=== PATIENT | female | born 1995 | race Caucasian/White ===

== ENCOUNTER 2021-12-07 21:39 | Inpatient (IN) ==
[2021-12-07 22:07] LABS: Basophils # 0.1 K/mcL (0.0-0.2); Basophils % 0.6 %; Eosinophils # 0.1 K/mcL (0.0-0.6); Hematocrit 42.3 % (35.3-44.9); Hemoglobin 14.1 g/dL (11.5-15.4); Immature Granulocytes % 0.4 % (0-4); Lymphocytes # 2.2 K/mcL (0.6-4.6); Lymphocytes % 26.7 %; Mean Corpuscular HGB Conc 33.3 g/dL (31.6-35.5); Mean Corpuscular Hemoglobin 30.4 pg (28.0-33.3); Mean Corpuscular Volume 91.2 fL (83.0-100.0); Mean Platelet Volume 11.1 fL (9.4-12.4); Monocytes # 0.6 K/mcL (0.0-1.3); Monocytes % 7.7 %; Neutrophils # 5.3 K/mcL (1.6-8.9); Platelet Count 259 K/mcL (140-400); Red Blood Count 4.64 M/mcL (3.82-4.97); Red Cell Distribution Width 12.8 % (11.5-14.5); Segmented Neutrophils % 63.6 %; White Blood Count 8.3 K/mcL (4.3-11.1)
[2021-12-07 22:27] LABS: Acetaminophen < 10 mcg/mL (10-20); Alanine Aminotransferase 10 Units/L (7-52); Albumin 4.8 g/dL (3.5-5.7); Albumin/Globulin Ratio 1.8 (1.1-2.2); Alkaline Phosphatase 81 Units/L (34-104); Aspartate Amino Transferase 15 Units/L (13-39); BUN/Creatinine Ratio 15 (6-26); Bilirubin,Direct 0.1 mg/dL (0.0-0.2); Bilirubin,Indirect 0.6 mg/dL (0.0-1.0); Bilirubin,Total 0.7 mg/dL (0.3-1.0); Blood Urea Nitrogen 11 mg/dL (6-20); Calcium 9.7 mg/dL (8.6-10.3); Carbon Dioxide 24 mEq/L (23-29); Chloride 106 mEq/L (98-107); Ethanol < 10 mg/dL (Less than 10); Globulin 2.7 g/dL (2.4-3.5); Glucose 113 mg/dL (70-105); Osmolality,Calculated 290 (280-300); Potassium 3.9 mEq/L (3.5-5.1); Salicylate < 2.5 mg/dL (15.0-30.0); Sodium 140 mEq/L (136-145); Total Protein 7.5 g/dL (6.4-8.9); eGFR For African Americans > 60 (> 60); eGFR For Non-African Americans > 60 (> 60)
[2021-12-07 22:58] LABS: Amphetamine Screen,Urine Negative ng/mL (Cutoff=1000); Barbiturate Screen,Urine Negative ng/mL (Cutoff=200); Benzodiazepines Screen,Urine Negative ng/mL (Cutoff=200); Cannabinoid Screen,Urine Negative ng/mL (Cutoff = 50); Cocaine Screen,Urine Negative ng/mL (Cutoff= 300); Opiate Screen,Urine Negative ng/mL (Cutoff=300); Phencyclidine Screen,Urine Negative ng/mL (Cutoff=25)
[2021-12-07 23:10] LABS: Bacteria,Urine Few per hpf (None-Few); Bilirubin,Urine Negative (Negative); Blood,Urine Small (Negative); Clarity,Urine Clear (Clear); Color,Urine Colorless (Yellow); Glucose,Urine (UA) Normal (Normal); Ketones,Urine Negative (Negative); Leukocyte Esterase,Urine Negative (Negative); Nitrite,Urine Negative (Negative); PH,Urine 6.5 pH Units (5.0-8.0); Protein,Urine Negative (Neg-Trace); RBC,Urine 0-3 per hpf (0-3); Specific Gravity,Urine 1.005 (1.010-1.025); Squamous Epithelial Cell,Urine Few per hpf (None-Few); Urobilinogen,Urine Normal (Normal); WBC,Urine 0-3 per hpf (0-3)
[2021-12-08 01:02] LABS: Influenza A PCR Negative (Negative); Influenza B PCR Negative (Negative); Resp. Syncytial Virus PCR Negative (Negative)
[2021-12-08 01:06] LABS: SARS-CoV-2 by PCR (In House) Negative (Negative)
[2021-12-08] MEDS ORDERED: *HR* LORazepam 1 MG TABLET PO PRN (01:13)
[2021-12-08] MEDS ORDERED: traZODone 50 MG TABLET PO PRN (01:13)
[2021-12-08] MEDS ORDERED: haloperidoL 5 MG TABLET PO PRN (01:13)
[2021-12-08] MEDS ORDERED: Haloperidol Lactate 5 MG/ML VIAL IM PRN (01:13)
[2021-12-08] MEDS ORDERED: *HR* LORazepam 2 MG/ML VIAL IM PRN (01:13)
[2021-12-08] MEDS ORDERED: Ibuprofen 400 MG TABLET PO PRN (01:13)
[2021-12-08] MEDS ORDERED: hydrOXYzine pamoate 25 MG CAPSULE PO PRN (01:13)
[2021-12-08] MEDS: Valsartan 80 MG TABLET PO SCH (10:39)
[2021-12-08] MEDS: lamoTRIgine 100 MG TABLET PO SCH (10:39)
[2021-12-09] MEDS: Valsartan 80 MG TABLET PO SCH (09:25)
[2021-12-09] MEDS: lamoTRIgine 100 MG TABLET PO SCH (09:26)
[2021-12-09] MEDS: Nicotine 2 MG GUM BC PRN (17:06)
[2021-12-10] MEDS: lamoTRIgine 100 MG TABLET PO SCH (08:36)
[2021-12-10] MEDS: Valsartan 80 MG TABLET PO SCH (08:36)
[2021-12-10] MEDS ORDERED: traZODone 50 MG TABLET PO PRN (09:39)
[2021-12-10] MEDS: Nicotine 2 MG GUM BC PRN (17:29)
[2021-12-11] MEDS: Valsartan 80 MG TABLET PO SCH (08:29)
[2021-12-11] MEDS: lamoTRIgine 100 MG TABLET PO SCH (08:30)
[2021-12-11 08:50] VITALS: BP 116/77; PULSE 62; TEMP 98.6; O2SAT 99
== END 2021-12-11 14:47 | disposition home or self-care (01) | DRG 751 ==
LOC: EMEROOARM 21:39 → 1ANU 12-08 01:15
PROVIDERS: ADMIT Psychiatry & Neurology Psychiatry; ATTEND Psychiatry & Neurology Psychiatry

== ENCOUNTER 2022-02-13 02:12 | Inpatient (IN) ==
[2022-02-13 03:28] LABS: Basophils % 0.4 %; Eosinophils # 0.1 K/mcL (0.0-0.6); Eosinophils % 1.1 %; Hematocrit 38.3 % (35.3-44.9); Hemoglobin 12.9 g/dL (11.5-15.4); Immature Granulocytes % 0.4 % (0-4); Lymphocytes # 2.2 K/mcL (0.6-4.6); Mean Corpuscular HGB Conc 33.7 g/dL (31.6-35.5); Mean Corpuscular Hemoglobin 30.4 pg (28.0-33.3); Mean Corpuscular Volume 90.3 fL (83.0-100.0); Mean Platelet Volume 10.8 fL (9.4-12.4); Monocytes # 0.8 K/mcL (0.0-1.3); Monocytes % 8.3 %; Neutrophils # 6.1 K/mcL (1.6-8.9); Platelet Count 250 K/mcL (140-400); Red Blood Count 4.24 M/mcL (3.82-4.97); Segmented Neutrophils % 65.8 %; White Blood Count 9.3 K/mcL (4.3-11.1)
[2022-02-13 03:30] LABS: Influenza A PCR Negative (Negative); Influenza B PCR Negative (Negative); Resp. Syncytial Virus PCR Negative (Negative)
[2022-02-13 03:32] LABS: SARS-CoV-2 by PCR (In House) Negative (Negative)
[2022-02-13 03:51] LABS: Bilirubin,Urine Negative (Negative); Blood,Urine Negative (Negative); Clarity,Urine Clear (Clear); Color,Urine Light-Yellow (Yellow); Glucose,Urine (UA) Normal (Normal); Ketones,Urine Negative (Negative); Leukocyte Esterase,Urine Negative (Negative); Nitrite,Urine Negative (Negative); Protein,Urine Negative (Neg-Trace); Specific Gravity,Urine 1.019 (1.010-1.025); Urobilinogen,Urine Normal (Normal)
[2022-02-13 03:52] LABS: Acetaminophen < 10 mcg/mL (10-20); BUN/Creatinine Ratio 17 (6-26); Blood Urea Nitrogen 13 mg/dL (6-20); Calcium 9.1 mg/dL (8.6-10.3); Carbon Dioxide 25 mEq/L (23-29); Chloride 107 mEq/L (98-107); Chol/HDL Ratio 2.2 (0-4.9); Cholesterol 154 mg/dL (< 200); Ethanol < 10 mg/dL (Less than 10); Glucose 79 mg/dL (70-105); HDL Cholesterol 69 mg/dL (40-59); LDL Cholesterol,Calculated 74 mg/dL (< 100); Osmolality,Calculated 285 (280-300); Potassium 3.9 mEq/L (3.5-5.1); Salicylate < 2.5 mg/dL (15.0-30.0); Sodium 138 mEq/L (136-145); Triglycerides 54 mg/dL (< 150)
[2022-02-13 04:03] LABS: Amphetamine Screen,Urine Negative ng/mL (Cutoff=1000); Barbiturate Screen,Urine Negative ng/mL (Cutoff=200); Benzodiazepines Screen,Urine Negative ng/mL (Cutoff=200); Cannabinoid Screen,Urine Positive ng/mL (Cutoff = 50); Cocaine Screen,Urine Negative ng/mL (Cutoff= 300); Opiate Screen,Urine Negative ng/mL (Cutoff=300); Phencyclidine Screen,Urine Negative ng/mL (Cutoff=25)
[2022-02-13] MEDS ORDERED: traZODone 50 MG TABLET PO PRN (05:29)
[2022-02-13] MEDS ORDERED: hydrOXYzine pamoate 25 MG CAPSULE PO PRN (05:29)
[2022-02-13] MEDS ORDERED: Acetaminophen 325 MG TABLET PO PRN (05:29)
[2022-02-13] MEDS ORDERED: haloperidoL 5 MG TABLET PO PRN (05:29)
[2022-02-13] MEDS ORDERED: *HR* LORazepam 2 MG/ML VIAL IM PRN (05:29)
[2022-02-13] MEDS ORDERED: *HR* LORazepam 1 MG TABLET PO PRN (05:29)
[2022-02-13] MEDS ORDERED: Haloperidol Lactate 5 MG/ML VIAL IM PRN (05:29)
[2022-02-13] MEDS ORDERED: Mag Hydrox/Al Hydrox/Simeth 30 ML UDC PO PRN (08:02)
[2022-02-13] MEDS ORDERED: MOM Conc 10 ML UD.LIQ PO PRN (08:02)
[2022-02-13] MEDS ORDERED: Nicotine 2 MG GUM BC PRN (11:00)
[2022-02-13] MEDS ORDERED: QUEtiapine Fumarate 25 MG TABLET PO PRN (11:42)
[2022-02-13] MEDS: lamoTRIgine 100 MG TABLET PO SCH (13:19)
[2022-02-13] MEDS: Valsartan 80 MG TABLET PO SCH (13:20)
[2022-02-14] MEDS: Valsartan 80 MG TABLET PO SCH (09:05)
[2022-02-14] MEDS: lamoTRIgine 100 MG TABLET PO SCH (09:05)
[2022-02-15] MEDS: Valsartan 80 MG TABLET PO SCH (08:59)
[2022-02-15] MEDS: lamoTRIgine 100 MG TABLET PO SCH (08:59)
[2022-02-15 09:12] VITALS: BP 101/69; PULSE 77; TEMP 97.9; O2SAT 99
== END 2022-02-15 11:30 | disposition home or self-care (01) | DRG 751 ==
LOC: EMEROOARM 02:12 → INTOOBSV 05:23 → 1ANU 05:23
PROVIDERS: ADMIT Psychiatry & Neurology Psychiatry; ATTEND Psychiatry & Neurology Psychiatry